=== PATIENT | male | born 1960 | race Caucasian/White ===

== ENCOUNTER 2021-01-28 15:04 | Observation (INO) | payer OTHER ==
[~2021-01-28] VITALS: Ht 180.3 cm; Wt 71.1 kg
[2021-01-28] MEDS ORDERED: IV NORMAL SALINE 1,000ML 1,000 ML IV SCH (15:30)
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
--- NOTE | 2021-01-28 15:53 | RAD ---
CT HEAD INDICATION: Reason: altered mental status / Spl. Instructions: / History: COMPARISON: None Available. Exposure: One or more of the following individualized dose reduction techniques were utilized for thi s examination: 1. Automated exposure control 2. Adjustment of the mA and/or kV according to patient size 3. Use of iterative reconstruction technique TECHNIQUE: 5 mm contiguous axial images were obtained from the skull base to the vertex in both bone and soft tissue algorithm. FINDINGS: No abnormal attenuation within the brain parenchyma. No evidence of acute intracranial hemorrhage. No extra-axial fluid collections. No mass effect or midline shift. Ventricular size is appropriate. Basal cisterns are patent. No fractures identified.Craven-white differentiation is preserved.Globes and orbits are within normal l imits. Paranasal sinuses and mastoid air cells are clear. IMPRESSION: No acute intracranial findings. Electronically signed by: Fredy Chavarria MD (01/28/2021 3:51 PM) [id number]
--- NOTE | 2021-01-28 16:01 | RAD ---
Single view of the chest. 01/28/2021 3:32 PM Indication: Altered mental status Comparison: None Findings: There is no pneumothorax or pleural effusion. No acute focal infiltrate is seen. Interstiti al coarsening is seen. Heart size is normal. No acute osseous changes are identified. IMPRESSION: 1. No evidence of acute cardiopulmonary process 2. Interstitial coarsening. The appearance suggests chronic lung disease Electronically signed by: Mayo Pham MD (01/28/2021 3:59 PM) [id number]
[2021-01-28 16:13] LABS: BASO % 0 % (0-3); EOS % 0 % (0-3); HEMATOCRIT 37.7 % (39.0-53.0); HEMOGLOBIN 12.7 g/dL (13.0-17.5); LYMPH # 1.2 x10^3/uL (1.0-4.8); LYMPH % 16 % (24-48); MEAN CORPUSCULAR HEMOGLOBIN 32 pg (25-35); MEAN CORPUSCULAR HGB CONC 34 g/dL (31-37); MEAN CORPUSCULAR VOLUME 95 fL (79-100); MONO # 0.4 x10^3/uL (0.0-1.1); MONO % 6 % (0-9); NEUT # 5.7 x10^3uL (1.8-7.7); NEUT % 78 % (31-73); PLATELET COUNT 190 x10^3/uL (140-400); RED BLOOD COUNT 3.98 x10^6/uL (4.30-5.70); RED CELL DISTRIBUTION WIDTH 13.7 % (11.5-14.5); WHITE BLOOD COUNT 7.4 x10^3/uL (4.0-11.0)
[2021-01-28 16:29] LABS: CALCIUM 8.8 mg/dL (8.5-10.1); CREATININE 1.2 mg/dL (0.7-1.3); GFR 61.8; POTASSIUM 4.4 mmol/L (3.5-5.1)
[2021-01-28 16:43] LABS: ALBUMIN 3.9 g/dL (3.4-5.0); ALBUMIN/GLOBULIN RATIO 1.3 (1.0-1.7); TOTAL BILIRUBIN 0.5 mg/dL (0.2-1.0); TOTAL PROTEIN 6.8 g/dL (6.4-8.2)
--- NOTE | 2021-01-28 16:52 | EKG ---
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
[2021-01-28 17:32] LABS: BILIRUBIN,URINE NEG (NEG); CLARITY,URINE CLEAR; COLOR,URINE YELLOW; GLUCOSE,URINE NEG (NEG); NITRITE,URINE NEG (NEG); UROBILINOGEN,URINE 0.2 mg/dL (0.2 mg/dL)
[2021-01-28 17:33] LABS: BARBITURATES NEG (NEG); BENZODIAZEPINES NEG (NEG); CANNABINOIDS POS (NEG); COCAINE NEG (NEG); METHADONE NEG (NEG); OPIATES NEG (NEG); PHENCYCLIDINE NEG (NEG)
[2021-01-28 17:34] LABS: AMPHETAMINE/METHAMPHETAMINE NEG (NEG)
[2021-01-28 17:35] LABS: BACTERIA,URINE 0 /HPF (0-FEW); SQUAMOUS EPITHELIAL CELL,UR OCC /LPF; WBC,URINE 0 /HPF (0-4)
[2021-01-28 19:45] VITALS: BP 162/74
[2021-01-28 20:40] VITALS: BP 160/85
[2021-01-28 20:41] VITALS: BP 161/84
--- NOTE | 2021-01-28 20:42 | NUR ---
PT ADMITTED TO [facility] VIA EMS ACCOMPANIED BY STAFF. PT AMBULATED FROM GURNEY TO BED INDEPENDENTLY. PT AOX4. POC DISCUSSED W/ VERBALIZED UNDERSTANDING. PT SITTING UP IN BED EATING BOXED LUNCH W/ CALL LIGHT IN REACH. WILL CONTINUE TO MONITOR.
[2021-01-28 22:40] VITALS: BP 126/71
[2021-01-29 05:55] VITALS: BP 147/74
[2021-01-29 07:24] VITALS: BP 134/83
[2021-01-29 07:26] VITALS: BP 131/72
[2021-01-29 07:27] VITALS: BP 155/78
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
--- NOTE | 2021-01-29 08:21 | NUR ---
NURSING NOTE CONSULT PER REPORT FROM NIKKY CAMACHO, CARDIO CONSULT HAS BEEN CALLED, NEUROLOGY CONSULT HAS NOT. DR GARCIA PAGED AT [phone]. DOUG DICK.
[2021-01-29] MEDS ORDERED: TAMSULOSIN HCL (09:54)
[2021-01-29] MEDS ORDERED: PRAVASTATIN (09:54)
[2021-01-29] MEDS ORDERED: CHOL10004 PO (09:54)
[2021-01-29] MEDS ORDERED: FLUT9.9S NS (09:54)
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
[2021-01-29 10:37] VITALS: BP 132/76
--- NOTE | 2021-01-29 11:56 | NUR ---
NURSING NOTE TRANSFER PT TRANSFERRED TO [facility]. REPORT CALLED TO INDIRA. DOUG DICK.
[2021-01-30 19:31] LABS: THYROID STIM HORMONE (TSH) 0.903 uIU/mL (0.358-3.740)
== END 2021-01-29 11:25 | disposition short-term general hospital (02) ==
LOC: ER 15:04 → 1 SOUTH 18:31
PROVIDERS: ADMIT Internal Medicine; ATTEND Internal Medicine
DX: R55 Syncope and collapse (principal); Z20.822 Contact with and (suspected) exposure to COVID-19; E78.5 Hyperlipidemia, unspecified; E78.00 Pure hypercholesterolemia, unspecified; I49.3 Ventricular premature depolarization; N40.0 Benign prostatic hyperplasia without lower urinary tract symptoms; Z90.49 Acquired absence of other specified parts of digestive tract; Z79.899 Other long term (current) drug therapy; Z87.891 Personal history of nicotine dependence; Z98.890 Other specified postprocedural states; V43.02XA Car driver injured in collision with other type car in nontraffic accident, initial encounter; Y93.89 Activity, other specified; Y92.481 Parking lot as the place of occurrence of the external cause; Y99.8 Other external cause status
CPT/HCPCS: 36415; 70450; 71045; 80053; 80061; 80307; 81001; 82553; 83735; 83880; 84443; 84484; 85025; 85610; 85730; 87426; 93005; 96360; 96361; 99285; G0378; J7030; U0003; G0379